=== PATIENT | female | born 1960 | race Caucasian/White ===

== ENCOUNTER → 2020-05-09 12:01 | Outpatient (CLI) | payer OTHER, SELFPAY ==
--- NOTE | 2020-05-09 | DI.MG.S_ITS ---
BILATERAL DIGITAL SCREENING MAMMOGRAM 3D/2D WITH CAD: 05/09/2020 CLINICAL: Routine screening. Family history of breast cancer. Comparison is made to exams dated: 01/07/2017 mammogram and 09/12/2015 mammogram - [facility]. There are scattered fibroglandular elements in both breasts. Current study was also evaluated with a Computer Aided Detection (CAD) system. No significant masses, calcifications, or other findings are seen in either breast. There has been no significant interval change. IMPRESSION: NEGATIVE There is no mammographic evidence of malignancy. A 1 year screening mammogram is recommended. This exam was interpreted at Station ID: [id number]. NOTE: For mammograms, a report in lay terms will be sent to the patient. Approximately 15% of breast malignancies will not be visualized mammographically. In the management of a palpable breast mass, a negative mammogram must not discourage biopsy of a clinically suspicious lesion. Electronically Signed By: Trinity juares/[email or web address]:05/09/2020 13:07:06 letter sent: Normal Exam ACR BI-RADS Category 1: Negative [id number]
== END ==
PROVIDERS: Family Provider Nurse Practitioner; PCP Nurse Practitioner Family; Referring Provider Nurse Practitioner Family; Visit Provider Nurse Practitioner Family
DX: Z12.31 Encounter for screening mammogram for malignant neoplasm of breast (principal); Z80.3 Family history of malignant neoplasm of breast; Z78.0 Asymptomatic menopausal state; E07.9 Disorder of thyroid, unspecified; S62.101A Fracture of unspecified carpal bone, right wrist, initial encounter for closed fracture; S62.102A Fracture of unspecified carpal bone, left wrist, initial encounter for closed fracture; Z87.891 Personal history of nicotine dependence
CPT/HCPCS: 77063; 77067; 77080

== ENCOUNTER → 2024-08-16 12:30 | Outpatient (CLI) | payer BC, SELFPAY ==
--- NOTE | 2024-08-16 12:34 | DI.ECHO.S_ITS ---
[facility] +---------+ [facility] : : [address] : : [place] : : [id number] : : Phone: [phone] Echocardiogram Report + + :Name: SREEDHAR LEE Study Date: 08/16/2024 Height: 67 in : :[facility] ReadingLocation: Weight: 195 lb : : Gender: Female BSA: 2.0 m2 : :: 1960 Age: 64 yrs BP: 141/101 mmHg: :Reason For Study: HYPERTENSION : :Ordering Physician: CYNDY PHILLIPS Performed By: Anna Goldstein : :Referring: CYNDY PHILLIPS : + + Interpretation Summary 1. Hyperdynamic LV contractility with EF > 80% and near obliteration of LV cavity at end systole resulting in a pseudo intracavitary gradient. No WMA. No LVH. Unable to comment on diastolic function. 2. Hyperdynamic RV contractility. 3. Normal chamber sizes. 4. No obvious valvular abnormalities. 5. No obvious intracardiac shunts. 6. No obvious intracardiac masses/thrombi. 7. No hemodynamically significant pericardial effusion. 8. Low right sided filling pressures. Conclusion: Hyperdynamic biventricular systolic function without significant valvular abnormalities. Procedure: A two-dimensional transthoracic echocardiogram with color flow and Doppler was performed. The study quality was technically adequate. There is no prior echocardiogram noted for this patient. The patient was in sinus tachycardia with heart rates between 89-103 bpm during the exam. Left Ventricle: The left ventricle is normal in size. Left ventricular wall thickness is borderline increased. An intracavitary gradient is suspected. The ejection fraction is estimated to be >80%. The left ventricle is hyperdynamic. Right Ventricle: The right ventricle is normal in size and function. Atria: The left atrial size is normal. Right atrial size is normal. There is no Doppler evidence for an interatrial shunt. Mitral Valve: The mitral valve leaflets appear to open well. There is no mitral regurgitation noted. Aortic Valve: The aortic valve is trileaflet. The aortic valve opens well. The peak aortic velocity is 2.0 m/sec. The aortic valve mean gradient is 8.8 mmHg. The calculated aortic valve area is 2.8 cm2. No aortic regurgitation is present. Tricuspid Valve: The tricuspid valve leaflets are thin and pliable. There is trace tricuspid regurgitation. Pulmonary artery pressures cannot be estimated because of the lack of a measurable TR jet velocity. Pulmonic Valve: The pulmonic valve is not well visualized. There is no pulmonic valvular regurgitation. Great Vessels: The aortic root is normal size. The dimensions of the ascending aorta are normal. The IVC is of normal diameter and collapses greater than 50% with a sniff. This suggests a low right atrial pressure of 3 mm Hg. Pericardium/ Pleura There is no pericardial effusion. There is no pleural effusion. MMode/2D Measurements & Calculations LVIDd: 4.5 cm LVOT diam: 2.1 cm LVIDs: 3.0 cm Ao root diam: 3.0 cm FS: 33.7 % asc Aorta Diam: 3.7 cm IVSd: 0.82 cm Ao Arch Diam (Prox Trans): 2.6 cm LVPWd: 1.1 cm LV logan. diameter/BSA (cm/m^2): 2.3 LV sys. diameter/BSA (cm/m^2): 1.5 LA A2 area: 19.3 cm2 RA long axis: 5.7 cm LA A4 area: 16.7 cm2 RA area: 13.1 cm2 LA length (vol): 5.5 cm RA vol: 25.4 ml LA vol: 49.5 ml RA : 12.7 ml/m2 LA vol index: 24.8 ml/m2 IVC diam: 1.3 cm RVD1 (basal): 3.0 cm RVD2 (mid): 2.5 cm TAPSE: 1.7 cm Doppler Measurements & Calculations Ao V2 max: 204.0 cm/sec LVOT Max Luis: 162.6 cm/sec Ao V2 mean: 140.9 cm/sec LV V1 max P.6 mmHg Ao max P.6 mmHg LV V1 VTI: 24.8 cm Ao mean P.8 mmHg NATHANIEL(I,D): 3.1 cm2 Ao V2 VTI: 28.5 cm NATHANIEL(V,D): 2.8 cm2 sev ratio: 0.87 NATHANIEL indexed to BSA (cm^2/m^2): 1.6 MV E max luis: 72.0 cm/sec PA V2 max: 136.9 cm/sec MV A max luis: 110.2 cm/sec PA V2 mean: 107.9 cm/sec MV E/A: 0.65 PA mean P.0 mmHg Med Peak E' Luis: 6.4 cm/sec PA pr(Accel): 30.2 mmHg E/E' med: 11.3 Lat Peak E' Luis: 12.2 cm/sec E/E' lat: 5.9 E/e' average: 8.6 MV dec time: 0.20 sec SV(LVOT): 88.5 ml Reading Physician:
== END ==
PROVIDERS: Family Provider Nurse Practitioner; PCP Family Medicine; Referring Provider Internal Medicine; Visit Provider Internal Medicine
DX: I10 Essential (primary) hypertension (principal)
CPT/HCPCS: 93306

== ENCOUNTER 2024-12-14 13:38 | Emergency (ER) | payer BC, SELFPAY ==
[2024-12-14] VITALS (48 sets, daily range): BP systolic 126–188; BP diastolic 82–137; PULSE 84–167; RESP 9–35; TEMP 36.6; O2SAT 94–99; BMI 31.3
--- NOTE | 2024-12-14 13:55 | EKG_ITS ---
[address] [address] Test Date: 2024-12-14 Pat Name: Swetha Alvarez Department: Room: Gender: Female Customer Service Manager: LILY : 1960 Requested By: Order Number: [id number] Reading MD: Gilson Phipps MD Measurements Intervals [place] Rate: 153 P: NC: QRS: 28 QRSD: 74 T: -1 QT: 290 QTc: 463 Interpretive Statements Critical Test Result: High HR Atrial fibrillation with rapid ventricular response Cannot rule out Anterior infarct , age undetermined NO PRIOR TRACING Electronically Signed On 12-15-2024 7:23:20 PDT by Gilson Phipps MD
--- NOTE | 2024-12-14 14:00 | DI.RAD.S_ITS ---
PROCEDURE: XR CHEST 1V INDICATIONS: Shortness of breath TECHNIQUE: One view of the chest was acquired. COMPARISON: None. FINDINGS: Surgical changes and devices: None. Lungs and pleura: Lungs are clear. No pleural effusions or pneumothorax. Mediastinum: Mediastinal contours appear normal. Heart size is enlarged. Bones and chest wall: No suspicious bony lesions. Overlying soft tissues appear unremarkable. IMPRESSION: Cardiomegaly. No acute pulmonary process. Dictated by: Dawit Pizarro M.D. on 12/14/2024 at 14:23 Approved by: Dawit Pizarro M.D. on 12/14/2024 at 14:24
--- NOTE | 2024-12-14 14:06 | ED_ITS ---
HPI - General Adult <Bassem Ireland MD - Last Filed: 12/15/24 09:58> General Chief complaint: Shortness of Breath/Dyspnea Stated complaint: Possible AFIB Time Seen by Provider: 12/14/24 14:05 Source: patient Mode of arrival: Ambulatory History of Present Illness HPI narrative: Significant PMHx include: HTN, hypothyroidism, alcohol use Swetha is a patient who presented to the emergency department with complaints of shortness of breath and feeling like her heart is racing. She first noticed the shortness of breath about two weeks ago, particularly with exertion. Last week, she started checking her blood pressure at home and noticed goofy numbers with her heart rate, ranging from 155 to 66. She saw her primary care physician today, who performed an EKG and referred her to the emergency department. Swetha has a history of high blood pressure and is currently taking Diltiazem and Losartan once daily. She had an echocardiogram in August and a heart monitor in September, which reportedly didn't show anything significant. She denies any history of heart attacks, blood clots, or previous diagnosis of fast irregular heartbeats. The patient reports drinking alcohol daily, currently consuming about half a bottle of watered-down wine per day. She last had alcohol yesterday. She also uses marijuana recreationally. Swetha denies smoking cigarettes and rarely consumes caffeine. Swetha denies feeling feverish, having a cough, or significant nasal congestion. She reports being a little snotty in the mornings but doesn't feel like she's coming down with a cold. She denies abdominal pain, nausea, vomiting, or swelling in the legs. She denies any chest pain or pain when urinating. The patient is on thyroid medication and reports that her TSH levels have been checked recently. Currently, Swetha experiences shortness of breath mostly with exertion. She describes her palpitations as coming and going. Related Data Home Medications Medication Instructions Recorded Confirmed cholecalciferol (vitamin D3) 50 2,000 iu PO 2XWK ##0 05/12/11 12/15/24 mcg (2,000 unit) capsule (Vitamin D3) cyanocobalamin (vitamin B-12) 1,000 mcg PO QDAY ##0 06/18/16 12/15/24 1,000 mcg tablet,extended release diltiazem HCl 120 mg 120 mg PO DAILY 12/14/24 12/14/24 capsule,extended release 24 hr losartan 100 mg tablet 100 mg PO DAILY 12/14/24 12/14/24 Previous Rx's Medication Instructions Recorded venlafaxine 75 mg capsule,extended 225 mg (3 x 75 mg) PO SEE 12/03/16 release 24 hr (Effexor XR) INSTRUCTIONS #270 caps levothyroxine 75 mcg tablet 0.075 mg PO QAM #15 tabs 04/07/17 (Synthroid) apixaban 5 mg tablet 5 mg PO BID #60 tabs 12/14/24 metoprolol tartrate 50 mg tablet 50 mg PO DAILY #10 tabs 12/14/24 Allergies Allergy/AdvReac Type Severity Reaction Status Date / Time SPIDER BITE Allergy Severe ANAPHYLAXIS Uncoded 12/14/24 13:57 SPIDER UNKNOWN Review of Systems <Bassem Ireland MD - Last Filed: 12/15/24 09:58> Review of Systems Narrative: All systems reviewed and unremarkable except as noted in the HPI Patient History <Bassem Ireland MD - Last Filed: 12/15/24 09:58> Social History Smoking Status: Smoker, status unknown Smoking Status: Smoker, status unknown Exam <Bassem Ireland MD - Last Filed: 12/15/24 09:58> Narrative Exam Narrative: VS as noted above Focused physical exam as follows: General: Well developed, well nourished, no acute distress HEENT: pink palpebral conjunctiva, anicteric sclera, ARIE, moist mucous membranes, no JVD, no cervical lymphadenopathy Lungs: no respiratory distress, clear to auscultation without wheezes or crackles; equal breath sounds Heart: tachycardic, irregular rhythm, no appreciable murmurs Abdomen: soft, nontender, no rebound or rigidity Musculoskeletal: no gross deformities with full ROM in all extremities, no pedal edema Skin: pink, warm; no rashes Neuro: AAOx3, GCS 15, nonfocal exam Psyche: no SI/HI, normal affect Initial Vital Signs Initial Vital Signs: Vital Signs Temperature 98 F 12/14/24 13:52 Pulse Rate 150 H 12/14/24 13:52 Respiratory Rate 18 12/14/24 13:52 Blood Pressure 183/103 H 12/14/24 13:52 Pulse Oximetry 98 12/14/24 13:52 Oxygen Delivery Method Room Air 12/14/24 13:52 <Christophe Woodruff MD - Last Filed: 12/15/24 17:53> Initial Vital Signs Initial Vital Signs: Vital Signs Temperature 98 F 12/14/24 13:52 Pulse Rate 150 H 12/14/24 13:52 Respiratory Rate 18 12/14/24 13:52 Blood Pressure 183/103 H 12/14/24 13:52 Pulse Oximetry 98 12/14/24 13:52 Oxygen Delivery Method Room Air 12/14/24 13:52 <Rolo Rios MD - Last Filed: 12/20/24 07:47> Initial Vital Signs Initial Vital Signs: Vital Signs Temperature 98 F 12/14/24 13:52 Pulse Rate 150 H 12/14/24 13:52 Respiratory Rate 18 12/14/24 13:52 Blood Pressure 183/103 H 12/14/24 13:52 Pulse Oximetry 98 12/14/24 13:52 Oxygen Delivery Method Room Air 12/14/24 13:52 Course <Bassem Ireland MD - Last Filed: 12/15/24 09:58> Course Course Narrative: Initial VS noted above. PMHx, PSHx, Medication list, social history reviewed as noted above. Differential diagnosis considered include (but not limited to) the following: ACS, cardiac dysrhythmia, electrolyte imbalance, CHF, PE, pneumonia, lung neoplasm, adverse effect or withdrawal of illicit drug/ETOH, symptomatic anemia, hypo/hyperthyroidism, anxiety Pt interviewed and examined. Bedside EKG showed narrow complex tachycardia. Cardizem 10mg IV ordered. No change in rhythm. Additional Cardizem 10mg IV ordered. HR still in the 140-150s range despite 2 doses of Cardizem. Cardizem drip started and maxxed out. 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 1630 - Discussed case with Dr. Fitzpatrick - he advised to continue Cardizem drip but give Metoprolol 5mg IV push and Metoprolol 50mg PO and see whether she converts or rate is controlled. If without improvement, will need to transfer where DANY cardioversion could be done. Metoprolol IV, PO and heparin bolus and drip started. 1800 - HR improved to the 80s but still in Afib. Transferred care to Dr. Woodruff @ 1850 with reassessment and disposition pending. Likely admit here for rate control, echo. Bassem Ireland MD 12/14/241849 Orders Ordered: Discontinued Medications Alprazolam (Alprazolam 0.25 Mg Tablet) 0.5 mg PO NOW ONE Stop: 12/15/24 13:36 Last Admin: 12/15/24 13:47 Dose: 0.5 mg Documented By: CORY Apixaban (Apixaban 5 Mg Tablet) 5 mg PO NOW ONE Stop: 12/15/24 05:15 Last Admin: 12/15/24 05:25 Dose: 5 mg Documented By: Diltiazem HCl (Diltiazem 25 Mg/5 Ml Sdv) 10 mg IV NOW ONE Stop: 12/14/24 14:18 Last Admin: 12/14/24 14:28 Dose: 10 mg Documented By: Diltiazem HCl (Diltiazem 25 Mg/5 Ml Sdv) 10 mg IV NOW ONE Stop: 12/14/24 14:45 Last Admin: 12/14/24 14:45 Dose: 10 mg Documented By: Diltiazem HCl (Diltiazem 25 Mg/5 Ml Sdv) 10 mg IV NOW ONE Stop: 12/15/24 06:27 Last Admin: 12/15/24 06:57 Dose: Not Given Documented By: Heparin Sodium (Porcine) (Heparin 5,000 Unit/Ml Vial) 5,000 unit IV NOW ONE Stop: 12/14/24 16:40 Last Admin: 12/14/24 16:49 Dose: 5,000 unit Documented By: Hydralazine HCl (Hydralazine 20 Mg/Ml Vial) 10 mg IV Q6HR PRN PRN Reason: Hypertension Last Admin: 12/15/24 12:38 Dose: 10 mg Documented By: ANJANA Diltiazem HCl 125 mg/ Sodium (Chloride) 125 mls @ 5 mls/hr IV TITRATE JOSE ELIAS; Protocol Last Titration: 12/15/24 03:51 Dose: Infused Documented By: Titration: 12/14/24 21:40 Dose: 0 mg/hr, 0 mls/hr Documented By: Titration: 12/14/24 16:40 Dose: 15 mg/hr, 15 mls/hr Documented By: Titration: 12/14/24 16:22 Dose: 12.5 mg/hr, 12.5 mls/hr Documented By: Titration: 12/14/24 16:15 Dose: 10 mg/hr, 10 mls/hr Documented By: Titration: 12/14/24 16:10 Dose: 7.5 mg/hr, 7.5 mls/hr Documented By: Admin: 12/14/24 16:02 Dose: 5 mg/hr, 5 mls/hr Documented By: ANJANA Magnesium Sulfate (Magnesium Sulfate) 2 gm in 50 mls @ 150 mls/hr IV NOW ONE Stop: 12/14/24 16:02 Last Infusion: 12/14/24 16:18 Dose: Infused Documented By: Co-signed By: ANJANA Admin: 12/14/24 15:52 Dose: 150 mls/hr Documented By: ANJANA Co-signed By: THOMAS Heparin Sodium/Dextrose (Heparin Drip) 25,000 unit in 500 mls @ 21.772 mls/hr IV CONT JOSE ELIAS; Protocol Last Titration: 12/14/24 21:40 Dose: Infused Documented By: Co-signed By: CODY Titration: 12/14/24 21:35 Dose: 0 units/kg/hr, 0 mls/hr Documented By: RONIT Co-signed By: CODY Admin: 12/14/24 16:57 Dose: 11.1 units/kg/hr, 20.139 mls/hr Documented By: Co-signed By: ANJANA Diltiazem HCl 125 mg/ Sodium (Chloride) 125 mls @ 5 mls/hr IV TITRATE JOSE ELIAS; Protocol Last Admin: 12/15/24 06:57 Dose: Not Given Documented By: Diltiazem HCl 125 mg/ Sodium (Chloride) 125 mls @ 5 mls/hr IV TITRATE JOSE ELIAS; Protocol Last Titration: 12/15/24 16:47 Dose: 10 mg/hr, 10 mls/hr Documented By: Titration: 12/15/24 14:25 Dose: 10 mg/hr, 10 mls/hr Documented By: Admin: 12/15/24 13:49 Dose: 5 mg/hr, 5 mls/hr Documented By: ANJANA Losartan Potassium (Losartan 50 Mg Tablet) 100 mg PO NOW ONE Stop: 12/15/24 12:04 Last Admin: 12/15/24 12:29 Dose: Not Given Documented By: ANJANA Metoprolol Succinate (Metoprolol Er 50 Mg Tablet) 50 mg PO NOW ONE Stop: 12/14/24 16:37 Last Admin: 12/14/24 16:49 Dose: 50 mg Documented By: Metoprolol Succinate (Metoprolol Er 50 Mg Tablet) 50 mg PO NOW ONE Stop: 12/15/24 05:15 Last Admin: 12/15/24 05:22 Dose: 50 mg Documented By: Metoprolol Tartrate (Metoprolol Tartrate 5 Mg/5 Ml Inj) 5 mg IV NOW ONE Stop: 12/14/24 16:37 Last Admin: 12/14/24 16:49 Dose: 5 mg Documented By: Metoprolol Tartrate (Metoprolol Tartrate 5 Mg/5 Ml Inj) 5 mg IV NOW ONE Stop: 12/15/24 06:26 Last Admin: 12/15/24 06:58 Dose: Not Given Documented By: Metoprolol Tartrate (Metoprolol Ir 25 Mg Tablet) 50 mg PO NOW ONE Stop: 12/15/24 06:51 Last Admin: 12/15/24 07:02 Dose: 50 mg Documented By: Vital Signs Vital signs: Vital Signs - 8 hr 12/15/24 10:00 12/15/24 10:00 12/15/24 10:19 Temperature Pulse Rate 108 H Respiratory Rate 18 Blood Pressure 161/92 H 146/108 H Pulse Oximetry 96 12/15/24 10:19 12/15/24 10:30 12/15/24 10:30 Temperature Pulse Rate 74 139 H Respiratory Rate 18 Blood Pressure 162/112 H Pulse Oximetry 99 12/15/24 10:45 12/15/24 10:45 12/15/24 11:00 Temperature Pulse Rate 133 H 127 H Respiratory Rate 16 16 Blood Pressure 154/103 H Pulse Oximetry 99 98 12/15/24 11:00 12/15/24 11:15 12/15/24 11:15 Temperature Pulse Rate 138 H Respiratory Rate 15 Blood Pressure 161/98 H 149/102 H Pulse Oximetry 98 12/15/24 11:30 12/15/24 11:31 12/15/24 11:31 Temperature Pulse Rate 133 H 132 H Respiratory Rate 21 Blood Pressure 191/100 H Pulse Oximetry 99 99 12/15/24 11:40 12/15/24 11:40 12/15/24 11:45 Temperature Pulse Rate 134 H 120 H Respiratory Rate 18 17 Blood Pressure 170/117 H Pulse Oximetry 98 98 12/15/24 12:00 12/15/24 12:00 12/15/24 12:16 Temperature Pulse Rate 109 H Respiratory Rate 15 Blood Pressure 156/91 H 144/110 H Pulse Oximetry 98 12/15/24 12:16 12/15/24 12:30 12/15/24 12:38 Temperature Pulse Rate 120 H 143 H 146 H Respiratory Rate 21 Blood Pressure 159/95 H Pulse Oximetry 98 98 12/15/24 12:38 12/15/24 12:38 12/15/24 12:45 Temperature Pulse Rate 141 H Respiratory Rate 14 Blood Pressure 159/95 H 165/118 H Pulse Oximetry 98 12/15/24 12:45 12/15/24 13:00 12/15/24 13:00 Temperature Pulse Rate 148 H 148 H Respiratory Rate 18 19 Blood Pressure 137/94 H Pulse Oximetry 100 98 12/15/24 13:17 12/15/24 13:17 12/15/24 13:30 Temperature Pulse Rate 151 H Respiratory Rate Blood Pressure 190/97 H 141/95 H Pulse Oximetry 100 12/15/24 13:30 12/15/24 13:45 12/15/24 13:45 Temperature Pulse Rate 151 H 152 H Respiratory Rate 19 15 Blood Pressure 146/114 H Pulse Oximetry 100 100 12/15/24 13:49 12/15/24 14:00 12/15/24 14:01 Temperature Pulse Rate 154 H 159 H Respiratory Rate 19 Blood Pressure 146/114 H 162/118 H Pulse Oximetry 99 12/15/24 14:01 12/15/24 14:16 12/15/24 14:16 Temperature Pulse Rate 156 H 155 H Respiratory Rate 18 Blood Pressure 151/110 H Pulse Oximetry 98 99 12/15/24 14:30 12/15/24 14:30 12/15/24 14:45 Temperature Pulse Rate 139 H 150 H Respiratory Rate 21 Blood Pressure 172/98 H Pulse Oximetry 99 99 12/15/24 14:45 12/15/24 15:00 12/15/24 15:00 Temperature Pulse Rate 138 H Respiratory Rate Blood Pressure 131/89 146/92 H Pulse Oximetry 99 12/15/24 15:05 12/15/24 15:05 12/15/24 15:10 Temperature Pulse Rate 150 H Respiratory Rate 16 Blood Pressure 125/88 131/79 Pulse Oximetry 100 12/15/24 15:10 12/15/24 15:14 12/15/24 15:15 Temperature Pulse Rate 144 H 138 H Respiratory Rate 21 Blood Pressure 141/98 H Pulse Oximetry 99 99 12/15/24 15:15 12/15/24 15:20 12/15/24 15:20 Temperature Pulse Rate 127 H 133 H Respiratory Rate 19 21 Blood Pressure 138/96 H Pulse Oximetry 99 100 12/15/24 15:30 12/15/24 15:30 12/15/24 15:35 Temperature Pulse Rate 131 H Respiratory Rate 20 Blood Pressure 139/89 125/91 H Pulse Oximetry 99 12/15/24 15:35 12/15/24 15:40 12/15/24 15:40 Temperature Pulse Rate 129 H 128 H Respiratory Rate 22 19 Blood Pressure 132/81 Pulse Oximetry 99 99 12/15/24 15:50 12/15/24 15:50 12/15/24 16:00 Temperature Pulse Rate 104 H Respiratory Rate Blood Pressure 152/84 H 160/88 H Pulse Oximetry 100 12/15/24 16:00 12/15/24 16:30 Temperature 98.2 F Pulse Rate 139 H 137 H Respiratory Rate 23 22 Blood Pressure Pulse Oximetry 99 99 <Christophe Woodruff MD - Last Filed: 12/15/24 17:53> Orders Ordered: Discontinued Medications Alprazolam (Alprazolam 0.25 Mg Tablet) 0.5 mg PO NOW ONE Stop: 12/15/24 13:36 Last Admin: 12/15/24 13:47 Dose: 0.5 mg Documented By: CORY Apixaban (Apixaban 5 Mg Tablet) 5 mg PO NOW ONE Stop: 12/15/24 05:15 Last Admin: 12/15/24 05:25 Dose: 5 mg Documented By: Diltiazem HCl (Diltiazem 25 Mg/5 Ml Sdv) 10 mg IV NOW ONE Stop: 12/14/24 14:18 Last Admin: 12/14/24 14:28 Dose: 10 mg Documented By: Diltiazem HCl (Diltiazem 25 Mg/5 Ml Sdv) 10 mg IV NOW ONE Stop: 12/14/24 14:45 Last Admin: 12/14/24 14:45 Dose: 10 mg Documented By: Diltiazem HCl (Diltiazem 25 Mg/5 Ml Sdv) 10 mg IV NOW ONE Stop: 12/15/24 06:27 Last Admin: 12/15/24 06:57 Dose: Not Given Documented By: Heparin Sodium (Porcine) (Heparin 5,000 Unit/Ml Vial) 5,000 unit IV NOW ONE Stop: 12/14/24 16:40 Last Admin: 12/14/24 16:49 Dose: 5,000 unit Documented By: Hydralazine HCl (Hydralazine 20 Mg/Ml Vial) 10 mg IV Q6HR PRN PRN Reason: Hypertension Last Admin: 12/15/24 12:38 Dose: 10 mg Documented By: ANJANA Diltiazem HCl 125 mg/ Sodium (Chloride) 125 mls @ 5 mls/hr IV TITRATE JOSE ELIAS; Protocol Last Titration: 12/15/24 03:51 Dose: Infused Documented By: Titration: 12/14/24 21:40 Dose: 0 mg/hr, 0 mls/hr Documented By: Titration: 12/14/24 16:40 Dose: 15 mg/hr, 15 mls/hr Documented By: Titration: 12/14/24 16:22 Dose: 12.5 mg/hr, 12.5 mls/hr Documented By: Titration: 12/14/24 16:15 Dose: 10 mg/hr, 10 mls/hr Documented By: Titration: 12/14/24 16:10 Dose: 7.5 mg/hr, 7.5 mls/hr Documented By: Admin: 12/14/24 16:02 Dose: 5 mg/hr, 5 mls/hr Documented By: ANJANA Magnesium Sulfate (Magnesium Sulfate) 2 gm in 50 mls @ 150 mls/hr IV NOW ONE Stop: 12/14/24 16:02 Last Infusion: 12/14/24 16:18 Dose: Infused Documented By: Co-signed By: ANJANA Admin: 12/14/24 15:52 Dose: 150 mls/hr Documented By: ANJANA Co-signed By: THOMAS Heparin Sodium/Dextrose (Heparin Drip) 25,000 unit in 500 mls @ 21.772 mls/hr IV CONT JOSE ELIAS; Protocol Last Titration: 12/14/24 21:40 Dose: Infused Documented By: Co-signed By: CODY Titration: 12/14/24 21:35 Dose: 0 units/kg/hr, 0 mls/hr Documented By: RONIT Co-signed By: CODY Admin: 12/14/24 16:57 Dose: 11.1 units/kg/hr, 20.139 mls/hr Documented By: Co-signed By: ANJANA Diltiazem HCl 125 mg/ Sodium (Chloride) 125 mls @ 5 mls/hr IV TITRATE JOSE ELIAS; Protocol Last Admin: 12/15/24 06:57 Dose: Not Given Documented By: Diltiazem HCl 125 mg/ Sodium (Chloride) 125 mls @ 5 mls/hr IV TITRATE JOSE ELIAS; Protocol Last Titration: 12/15/24 16:47 Dose: 10 mg/hr, 10 mls/hr Documented By: Titration: 12/15/24 14:25 Dose: 10 mg/hr, 10 mls/hr Documented By: Admin: 12/15/24 13:49 Dose: 5 mg/hr, 5 mls/hr Documented By: ANJANA Losartan Potassium (Losartan 50 Mg Tablet) 100 mg PO NOW ONE Stop: 12/15/24 12:04 Last Admin: 12/15/24 12:29 Dose: Not Given Documented By: ANJANA Metoprolol Succinate (Metoprolol Er 50 Mg Tablet) 50 mg PO NOW ONE Stop: 12/14/24 16:37 Last Admin: 12/14/24 16:49 Dose: 50 mg Documented By: Metoprolol Succinate (Metoprolol Er 50 Mg Tablet) 50 mg PO NOW ONE Stop: 12/15/24 05:15 Last Admin: 12/15/24 05:22 Dose: 50 mg Documented By: Metoprolol Tartrate (Metoprolol Tartrate 5 Mg/5 Ml Inj) 5 mg IV NOW ONE Stop: 12/14/24 16:37 Last Admin: 12/14/24 16:49 Dose: 5 mg Documented By: Metoprolol Tartrate (Metoprolol Tartrate 5 Mg/5 Ml Inj) 5 mg IV NOW ONE Stop: 12/15/24 06:26 Last Admin: 12/15/24 06:58 Dose: Not Given Documented By: Metoprolol Tartrate (Metoprolol Ir 25 Mg Tablet) 50 mg PO NOW ONE Stop: 12/15/24 06:51 Last Admin: 12/15/24 07:02 Dose: 50 mg Documented By: Vital Signs Vital signs: Vital Signs - 8 hr 12/15/24 10:00 12/15/24 10:00 12/15/24 10:19 Temperature Pulse Rate 108 H Respiratory Rate 18 Blood Pressure 161/92 H 146/108 H Pulse Oximetry 96 12/15/24 10:19 12/15/24 10:30 12/15/24 10:30 Temperature Pulse Rate 74 139 H Respiratory Rate 18 Blood Pressure 162/112 H Pulse Oximetry 99 12/15/24 10:45 12/15/24 10:45 12/15/24 11:00 Temperature Pulse Rate 133 H 127 H Respiratory Rate 16 16 Blood Pressure 154/103 H Pulse Oximetry 99 98 12/15/24 11:00 12/15/24 11:15 12/15/24 11:15 Temperature Pulse Rate 138 H Respiratory Rate 15 Blood Pressure 161/98 H 149/102 H Pulse Oximetry 98 12/15/24 11:30 12/15/24 11:31 12/15/24 11:31 Temperature Pulse Rate 133 H 132 H Respiratory Rate 21 Blood Pressure 191/100 H Pulse Oximetry 99 99 12/15/24 11:40 12/15/24 11:40 12/15/24 11:45 Temperature Pulse Rate 134 H 120 H Respiratory Rate 18 17 Blood Pressure 170/117 H Pulse Oximetry 98 98 12/15/24 12:00 12/15/24 12:00 12/15/24 12:16 Temperature Pulse Rate 109 H Respiratory Rate 15 Blood Pressure 156/91 H 144/110 H Pulse Oximetry 98 12/15/24 12:16 12/15/24 12:30 12/15/24 12:38 Temperature Pulse Rate 120 H 143 H 146 H Respiratory Rate 21 Blood Pressure 159/95 H Pulse Oximetry 98 98 12/15/24 12:38 12/15/24 12:38 12/15/24 12:45 Temperature Pulse Rate 141 H Respiratory Rate 14 Blood Pressure 159/95 H 165/118 H Pulse Oximetry 98 12/15/24 12:45 12/15/24 13:00 12/15/24 13:00 Temperature Pulse Rate 148 H 148 H Respiratory Rate 18 19 Blood Pressure 137/94 H Pulse Oximetry 100 98 12/15/24 13:17 12/15/24 13:17 12/15/24 13:30 Temperature Pulse Rate 151 H Respiratory Rate Blood Pressure 190/97 H 141/95 H Pulse Oximetry 100 12/15/24 13:30 12/15/24 13:45 12/15/24 13:45 Temperature Pulse Rate 151 H 152 H Respiratory Rate 19 15 Blood Pressure 146/114 H Pulse Oximetry 100 100 12/15/24 13:49 12/15/24 14:00 12/15/24 14:01 Temperature Pulse Rate 154 H 159 H Respiratory Rate 19 Blood Pressure 146/114 H 162/118 H Pulse Oximetry 99 12/15/24 14:01 12/15/24 14:16 12/15/24 14:16 Temperature Pulse Rate 156 H 155 H Respiratory Rate 18 Blood Pressure 151/110 H Pulse Oximetry 98 99 12/15/24 14:30 12/15/24 14:30 12/15/24 14:45 Temperature Pulse Rate 139 H 150 H Respiratory Rate 21 Blood Pressure 172/98 H Pulse Oximetry 99 99 12/15/24 14:45 12/15/24 15:00 12/15/24 15:00 Temperature Pulse Rate 138 H Respiratory Rate Blood Pressure 131/89 146/92 H Pulse Oximetry 99 12/15/24 15:05 12/15/24 15:05 12/15/24 15:10 Temperature Pulse Rate 150 H Respiratory Rate 16 Blood Pressure 125/88 131/79 Pulse Oximetry 100 12/15/24 15:10 12/15/24 15:14 12/15/24 15:15 Temperature Pulse Rate 144 H 138 H Respiratory Rate 21 Blood Pressure 141/98 H Pulse Oximetry 99 99 12/15/24 15:15 12/15/24 15:20 12/15/24 15:20 Temperature Pulse Rate 127 H 133 H Respiratory Rate 19 21 Blood Pressure 138/96 H Pulse Oximetry 99 100 12/15/24 15:30 12/15/24 15:30 12/15/24 15:35 Temperature Pulse Rate 131 H Respiratory Rate 20 Blood Pressure 139/89 125/91 H Pulse Oximetry 99 12/15/24 15:35 12/15/24 15:40 12/15/24 15:40 Temperature Pulse Rate 129 H 128 H Respiratory Rate 22 19 Blood Pressure 132/81 Pulse Oximetry 99 99 12/15/24 15:50 12/15/24 15:50 12/15/24 16:00 Temperature Pulse Rate 104 H Respiratory Rate Blood Pressure 152/84 H 160/88 H Pulse Oximetry 100 12/15/24 16:00 12/15/24 16:30 Temperature 98.2 F Pulse Rate 139 H 137 H Respiratory Rate 23 22 Blood Pressure Pulse Oximetry 99 99 <Rolo Rios MD - Last Filed: 12/20/24 07:47> Orders Ordered: Discontinued Medications Alprazolam (Alprazolam 0.25 Mg Tablet) 0.5 mg PO NOW ONE Stop: 12/15/24 13:36 Last Admin: 12/15/24 13:47 Dose: 0.5 mg Documented By: CORY Apixaban (Apixaban 5 Mg Tablet) 5 mg PO NOW ONE Stop: 12/15/24 05:15 Last Admin: 12/15/24 05:25 Dose: 5 mg Documented By: Diltiazem HCl (Diltiazem 25 Mg/5 Ml Sdv) 10 mg IV NOW ONE Stop: 12/14/24 14:18 Last Admin: 12/14/24 14:28 Dose: 10 mg Documented By: Diltiazem HCl (Diltiazem 25 Mg/5 Ml Sdv) 10 mg IV NOW ONE Stop: 12/14/24 14:45 Last Admin: 12/14/24 14:45 Dose: 10 mg Documented By: Diltiazem HCl (Diltiazem 25 Mg/5 Ml Sdv) 10 mg IV NOW ONE Stop: 12/15/24 06:27 Last Admin: 12/15/24 06:57 Dose: Not Given Documented By: Heparin Sodium (Porcine) (Heparin 5,000 Unit/Ml Vial) 5,000 unit IV NOW ONE Stop: 12/14/24 16:40 Last Admin: 12/14/24 16:49 Dose: 5,000 unit Documented By: Hydralazine HCl (Hydralazine 20 Mg/Ml Vial) 10 mg IV Q6HR PRN PRN Reason: Hypertension Last Admin: 12/15/24 12:38 Dose: 10 mg Documented By: ANJANA Diltiazem HCl 125 mg/ Sodium (Chloride) 125 mls @ 5 mls/hr IV TITRATE JOSE ELIAS; Protocol Last Titration: 12/15/24 03:51 Dose: Infused Documented By: Titration: 12/14/24 21:40 Dose: 0 mg/hr, 0 mls/hr Documented By: Titration: 12/14/24 16:40 Dose: 15 mg/hr, 15 mls/hr Documented By: Titration: 12/14/24 16:22 Dose: 12.5 mg/hr, 12.5 mls/hr Documented By: Titration: 12/14/24 16:15 Dose: 10 mg/hr, 10 mls/hr Documented By: Titration: 12/14/24 16:10 Dose: 7.5 mg/hr, 7.5 mls/hr Documented By: Admin: 12/14/24 16:02 Dose: 5 mg/hr, 5 mls/hr Documented By: ANJANA Magnesium Sulfate (Magnesium Sulfate) 2 gm in 50 mls @ 150 mls/hr IV NOW ONE Stop: 12/14/24 16:02 Last Infusion: 12/14/24 16:18 Dose: Infused Documented By: Co-signed By: ANJANA Admin: 12/14/24 15:52 Dose: 150 mls/hr Documented By: ANJANA Co-signed By: THOMAS Heparin Sodium/Dextrose (Heparin Drip) 25,000 unit in 500 mls @ 21.772 mls/hr IV CONT JOSE ELIAS; Protocol Last Titration: 12/14/24 21:40 Dose: Infused Documented By: AB Co-signed By: CODY Titration: 12/14/24 21:35 Dose: 0 units/kg/hr, 0 mls/hr Documented By: RONIT Co-signed By: CODY Admin: 12/14/24 16:57 Dose: 11.1 units/kg/hr, 20.139 mls/hr Documented By: Co-signed By: ANJANA Diltiazem HCl 125 mg/ Sodium (Chloride) 125 mls @ 5 mls/hr IV TITRATE JOSE ELIAS; Protocol Last Admin: 12/15/24 06:57 Dose: Not Given Documented By: AB Diltiazem HCl 125 mg/ Sodium (Chloride) 125 mls @ 5 mls/hr IV TITRATE JOSE ELIAS; Protocol Last Titration: 12/15/24 16:47 Dose: 10 mg/hr, 10 mls/hr Documented By: Titration: 12/15/24 14:25 Dose: 10 mg/hr, 10 mls/hr Documented By: Admin: 12/15/24 13:49 Dose: 5 mg/hr, 5 mls/hr Documented By: ANJANA Losartan Potassium (Losartan 50 Mg Tablet) 100 mg PO NOW ONE Stop: 12/15/24 12:04 Last Admin: 12/15/24 12:29 Dose: Not Given Documented By: ANJANA Metoprolol Succinate (Metoprolol Er 50 Mg Tablet) 50 mg PO NOW ONE Stop: 12/14/24 16:37 Last Admin: 12/14/24 16:49 Dose: 50 mg Documented By: Metoprolol Succinate (Metoprolol Er 50 Mg Tablet) 50 mg PO NOW ONE Stop: 12/15/24 05:15 Last Admin: 12/15/24 05:22 Dose: 50 mg Documented By: Metoprolol Tartrate (Metoprolol Tartrate 5 Mg/5 Ml Inj) 5 mg IV NOW ONE Stop: 12/14/24 16:37 Last Admin: 12/14/24 16:49 Dose: 5 mg Documented By: Metoprolol Tartrate (Metoprolol Tartrate 5 Mg/5 Ml Inj) 5 mg IV NOW ONE Stop: 12/15/24 06:26 Last Admin: 12/15/24 06:58 Dose: Not Given Documented By: Metoprolol Tartrate (Metoprolol Ir 25 Mg Tablet) 50 mg PO NOW ONE Stop: 12/15/24 06:51 Last Admin: 12/15/24 07:02 Dose: 50 mg Documented By: Vital Signs Vital signs: Vital Signs - 8 hr 12/15/24 10:00 12/15/24 10:00 12/15/24 10:19 Temperature Pulse Rate 108 H Respiratory Rate 18 Blood Pressure 161/92 H 146/108 H Pulse Oximetry 96 12/15/24 10:19 12/15/24 10:30 12/15/24 10:30 Temperature Pulse Rate 74 139 H Respiratory Rate 18 Blood Pressure 162/112 H Pulse Oximetry 99 12/15/24 10:45 12/15/24 10:45 12/15/24 11:00 Temperature Pulse Rate 133 H 127 H Respiratory Rate 16 16 Blood Pressure 154/103 H Pulse Oximetry 99 98 12/15/24 11:00 12/15/24 11:15 12/15/24 11:15 Temperature Pulse Rate 138 H Respiratory Rate 15 Blood Pressure 161/98 H 149/102 H Pulse Oximetry 98 12/15/24 11:30 12/15/24 11:31 12/15/24 11:31 Temperature Pulse Rate 133 H 132 H Respiratory Rate 21 Blood Pressure 191/100 H Pulse Oximetry 99 99 12/15/24 11:40 12/15/24 11:40 12/15/24 11:45 Temperature Pulse Rate 134 H 120 H Respiratory Rate 18 17 Blood Pressure 170/117 H Pulse Oximetry 98 98 12/15/24 12:00 12/15/24 12:00 12/15/24 12:16 Temperature Pulse Rate 109 H Respiratory Rate 15 Blood Pressure 156/91 H 144/110 H Pulse Oximetry 98 12/15/24 12:16 12/15/24 12:30 12/15/24 12:38 Temperature Pulse Rate 120 H 143 H 146 H Respiratory Rate 21 Blood Pressure 159/95 H Pulse Oximetry 98 98 12/15/24 12:38 12/15/24 12:38 12/15/24 12:45 Temperature Pulse Rate 141 H Respiratory Rate 14 Blood Pressure 159/95 H 165/118 H Pulse Oximetry 98 12/15/24 12:45 12/15/24 13:00 12/15/24 13:00 Temperature Pulse Rate 148 H 148 H Respiratory Rate 18 19 Blood Pressure 137/94 H Pulse Oximetry 100 98 12/15/24 13:17 12/15/24 13:17 12/15/24 13:30 Temperature Pulse Rate 151 H Respiratory Rate Blood Pressure 190/97 H 141/95 H Pulse Oximetry 100 12/15/24 13:30 12/15/24 13:45 12/15/24 13:45 Temperature Pulse Rate 151 H 152 H Respiratory Rate 19 15 Blood Pressure 146/114 H Pulse Oximetry 100 100 12/15/24 13:49 12/15/24 14:00 12/15/24 14:01 Temperature Pulse Rate 154 H 159 H Respiratory Rate 19 Blood Pressure 146/114 H 162/118 H Pulse Oximetry 99 12/15/24 14:01 12/15/24 14:16 12/15/24 14:16 Temperature Pulse Rate 156 H 155 H Respiratory Rate 18 Blood Pressure 151/110 H Pulse Oximetry 98 99 12/15/24 14:30 12/15/24 14:30 12/15/24 14:45 Temperature Pulse Rate 139 H 150 H Respiratory Rate 21 Blood Pressure 172/98 H Pulse Oximetry 99 99 12/15/24 14:45 12/15/24 15:00 12/15/24 15:00 Temperature Pulse Rate 138 H Respiratory Rate Blood Pressure 131/89 146/92 H Pulse Oximetry 99 12/15/24 15:05 12/15/24 15:05 12/15/24 15:10 Temperature Pulse Rate 150 H Respiratory Rate 16 Blood Pressure 125/88 131/79 Pulse Oximetry 100 12/15/24 15:10 12/15/24 15:14 12/15/24 15:15 Temperature Pulse Rate 144 H 138 H Respiratory Rate 21 Blood Pressure 141/98 H Pulse Oximetry 99 99 12/15/24 15:15 12/15/24 15:20 12/15/24 15:20 Temperature Pulse Rate 127 H 133 H Respiratory Rate 19 21 Blood Pressure 138/96 H Pulse Oximetry 99 100 12/15/24 15:30 12/15/24 15:30 12/15/24 15:35 Temperature Pulse Rate 131 H Respiratory Rate 20 Blood Pressure 139/89 125/91 H Pulse Oximetry 99 12/15/24 15:35 12/15/24 15:40 12/15/24 15:40 Temperature Pulse Rate 129 H 128 H Respiratory Rate 22 19 Blood Pressure 132/81 Pulse Oximetry 99 99 12/15/24 15:50 12/15/24 15:50 12/15/24 16:00 Temperature Pulse Rate 104 H Respiratory Rate Blood Pressure 152/84 H 160/88 H Pulse Oximetry 100 12/15/24 16:00 12/15/24 16:30 Temperature 98.2 F Pulse Rate 139 H 137 H Respiratory Rate 23 22 Blood Pressure Pulse Oximetry 99 99 Medical Decision Making <Bassem Ireland MD - Last Filed: 12/15/24 09:58> Lab Data 12/14/24 14:00 12/15/24 08:30 Labs: Lab Results 12/14/24 12/14/24 12/15/24 Range/Units 14:00 17:35 08:30 WBC 10.3 (4.5-11.0) X10^3/uL RBC 4.53 (4.0-5.2) X10^6/uL Hgb 14.1 (12.0-16.0) g/dL Hct 41.4 (36-46) % MCV 91.4 (80-100) fL MCH 31.2 (26-34) PG MCHC 34.1 (30-36) % RDW 13.4 (11.6-14.8) % Plt Count 330 (150-400) X10^3/uL Neut % (Auto) 72.1 (50-75) % Lymph % (Auto) 16.6 L (25-40) % [place] % (Auto) 9.8 (3-14) % Eos % (Auto) 0.5 L (2-4) % Baso % (Auto) 1.0 (0-2) % Neut # (Auto) 7500 H (7157-2114) /uL Lymph # (Auto) 1700 (1340-2573) /uL [place] # (Auto) 1000 H (0-900) /uL Eos # (Auto) 100 (0-450) /uL Baso # (Auto) 100 (0-100) /uL PT 11.6 (9.4-12.5) SECONDS INR 1.0 (0.9-1.3) APTT 34 (25.1-36.5) SECONDS Sodium 128 L 132 L (137-145) mmol/L Potassium 4.1 4.4 (3.4-5.1) mmol/L Chloride 96 L 99 (98-107) mmol/L Carbon Dioxide 21 L 21 L (22-32) mmol/L BUN 8 10 (7-17) mg/dL Creatinine 0.49 L 0.48 L (0.52-1.04) mg/dL Estimated GFR > 60 > 60 (>60) mL/min BUN/Creatinine Ratio 16.3 20.8 (6-22) Glucose 108 H 115 H (70-99) mg/dL Lactate 1.1 (0.7-2.1) mmol/L Calcium 9.5 9.4 (8.4-10.2) mg/dL Magnesium 1.7 (1.6-2.3) mg/dL Total Bilirubin 0.8 0.8 (0.2-1.3) mg/dL AST 57 H 46 H (14-36) IU/L ALT 40 H 37 H (<35) IU/L Alkaline Phosphatase 67 56 (38-126) U/L Total Creatine Kinase 67 (30-135) U/L Troponin I < 0.012 < 0.012 (0.01-0.034) ng/mL NT-Pro-B Natriuret Pep 1060 H (<125) pg/mL Total Protein 8.0 7.9 (6.3-8.2) g/dL Albumin 4.7 4.6 (3.5-5.0) g/dL Globulin 3.3 3.3 (1.7-4.1) g/dL Albumin/Globulin Ratio 1.4 1.4 (1.0-2.8) TSH 9.83 H (0.47-4.68) uIU/mL U Opiates 300ng/mL cut Negative (Negative) Ur Oxycodone Screen Negative (Negative) Urine Methadone Screen Negative (Negative) Ur Barbiturates Screen Negative (Negative) U Tricyclic Antidepress Negative (Negative) Ur Phencyclidine Scrn Negative (Negative) Ur Amphetamines Screen Negative (Negative) U Methamphetamines Scrn Negative (Negative) Ur MDMA Scrn (Ecstasy) Negative (Negative) U Benzodiazepines Scrn Negative (Negative) Urine Cocaine Screen Negative (Negative) U Marijuana (THC) Screen Positive H (Negative) Urine pH Normal (Normal) Urine Specific [place] Normal (Normal) Ethyl Alcohol < 10 ( - 10) mg/dL Ur Creatinine Normal (Normal) ECG Data Attestation: I personally reviewed and interpreted this ECG as follows: (1400 - narrow complex tach @ 153; nonspecific STTW changes; QTc 463) <Christophe Woodruff MD - Last Filed: 12/15/24 17:53> Lab Data Lab results reviewed: Yes I reviewed the patient's lab results. Lab results narrative: White blood cell count 26282, hemoglobin 14.1, platelets adequate. Glucose 108. Normal renal function. Serum CO2 21. Sodium 128 low. Potassium 4.1 normal. LFTs show mild transaminitis, normal T bili and alkaline phosphatase noted. TSH 9.8 elevated. Lactate 1.1 normal. Alcohol level negative. Troponin negative/unmeasurable. BNP 1060 elevated. UDS positive for THC otherwise negative. Labs: Lab Results 12/14/24 12/14/24 12/15/24 Range/Units 14:00 17:35 08:30 WBC 10.3 (4.5-11.0) X10^3/uL RBC 4.53 (4.0-5.2) X10^6/uL Hgb 14.1 (12.0-16.0) g/dL Hct 41.4 (36-46) % MCV 91.4 (80-100) fL MCH 31.2 (26-34) PG MCHC 34.1 (30-36) % RDW 13.4 (11.6-14.8) % Plt Count 330 (150-400) X10^3/uL Neut % (Auto) 72.1 (50-75) % Lymph % (Auto) 16.6 L (25-40) % [place] % (Auto) 9.8 (3-14) % Eos % (Auto) 0.5 L (2-4) % Baso % (Auto) 1.0 (0-2) % Neut # (Auto) 7500 H (6676-8709) /uL Lymph # (Auto) 1700 (2766-8308) /uL [place] # (Auto) 1000 H (0-900) /uL Eos # (Auto) 100 (0-450) /uL Baso # (Auto) 100 (0-100) /uL PT 11.6 (9.4-12.5) SECONDS INR 1.0 (0.9-1.3) APTT 34 (25.1-36.5) SECONDS Sodium 128 L 132 L (137-145) mmol/L Potassium 4.1 4.4 (3.4-5.1) mmol/L Chloride 96 L 99 (98-107) mmol/L Carbon Dioxide 21 L 21 L (22-32) mmol/L BUN 8 10 (7-17) mg/dL Creatinine 0.49 L 0.48 L (0.52-1.04) mg/dL Estimated GFR > 60 > 60 (>60) mL/min BUN/Creatinine Ratio 16.3 20.8 (6-22) Glucose 108 H 115 H (70-99) mg/dL Lactate 1.1 (0.7-2.1) mmol/L Calcium 9.5 9.4 (8.4-10.2) mg/dL Magnesium 1.7 (1.6-2.3) mg/dL Total Bilirubin 0.8 0.8 (0.2-1.3) mg/dL AST 57 H 46 H (14-36) IU/L ALT 40 H 37 H (<35) IU/L Alkaline Phosphatase 67 56 (38-126) U/L Total Creatine Kinase 67 (30-135) U/L Troponin I < 0.012 < 0.012 (0.01-0.034) ng/mL NT-Pro-B Natriuret Pep 1060 H (<125) pg/mL Total Protein 8.0 7.9 (6.3-8.2) g/dL Albumin 4.7 4.6 (3.5-5.0) g/dL Globulin 3.3 3.3 (1.7-4.1) g/dL Albumin/Globulin Ratio 1.4 1.4 (1.0-2.8) TSH 9.83 H (0.47-4.68) uIU/mL U Opiates 300ng/mL cut Negative (Negative) Ur Oxycodone Screen Negative (Negative) Urine Methadone Screen Negative (Negative) Ur Barbiturates Screen Negative (Negative) U Tricyclic Antidepress Negative (Negative) Ur Phencyclidine Scrn Negative (Negative) Ur Amphetamines Screen Negative (Negative) U Methamphetamines Scrn Negative (Negative) Ur MDMA Scrn (Ecstasy) Negative (Negative) U Benzodiazepines Scrn Negative (Negative) Urine Cocaine Screen Negative (Negative) U Marijuana (THC) Screen Positive H (Negative) Urine pH Normal (Normal) Urine Specific [place] Normal (Normal) Ethyl Alcohol < 10 ( - 10) mg/dL Ur Creatinine Normal (Normal) Imaging Data Chest x-ray: Radiologist's Impression: [address] [address] XRay Report Signed Patient: Swetha Alvarez MR#: [id number] : 1960 Acct:[id number] Age/Sex: 64 / F Date of Service: 12/14/24 Loc: ED Accession Number: [id number] Procedure: XR chest 1V Ordering Provider: Bassem Ireland MD PROCEDURE: XR CHEST 1V INDICATIONS: Shortness of breath TECHNIQUE: One view of the chest was acquired. COMPARISON: None. FINDINGS: Surgical changes and devices: None. Lungs and pleura: Lungs are clear. No pleural effusions or pneumothorax. Mediastinum: Mediastinal contours appear normal. Heart size is enlarged. Bones and chest wall: No suspicious bony lesions. Overlying soft tissues appear unremarkable. IMPRESSION: Cardiomegaly. No acute pulmonary process. Dictated by: Dawit Pizarro M.D. on 12/14/2024 at 14:23 Approved by: Dawit Pizarro M.D. on 12/14/2024 at 14:24 CTA chest: Radiologist's Impression: Close Chest CTA (Signed) Servando Villatoro - 12/14/24 Chest X-Ray (Signed) Dawit Pizarro - 12/14/24 Launch?[place] [address] CT Scan Report Signed Patient: Swetha Alvarez MR#: [id number] : 1960 Acct:[id number] Age/Sex: 64 / F Date of Service: 12/14/24 Loc: ED Accession Number: [id number] Procedure: CT angio chest PE protocol Ordering Provider: Bassem Ireland MD PROCEDURE: CT ANGIO CHEST PE PROTOCOL INDICATIONS: dyspnea, atrial fibrillation TECHNIQUE: After the administration of intravenous contrast, 2 mm thick sections acquired from the pulmonary apices to the posterior costophrenic angles. 3-dimensional maximum intensity projection (MIP) coronal and sagittal reformats were then acquired through the thorax. For radiation dose reduction, the following was used: automated exposure control, adjustment of mA and/or kV according to patient size. COMPARISON: None. FINDINGS: Image quality: Diagnostic. Pulmonary arteries: Pulmonary arteries are normal in size, and demonstrate no intraluminal filling defects to suggest central pulmonary embolism. Lower Neck: No enlarged lymph nodes. Thyroid: No thyroid nodules which require sonographic follow up, per consensus guidelines. Axillae: No enlarged lymph nodes. Chest Wall: Unremarkable. Bones: Unremarkable. Lungs and Pleura: No pneumothorax or pleural effusions. Subsolid pulmonary nodule, right lower lobe, image 199 of series 5 measuring 1.1 x 0.7 cm. Heart: Heart size is normal. Left atrium is enlarged. No pericardial effusion. Severe coronary artery calcifications with suggestion of a severe stenosis from noncalcified plaque in the LAD on image 78 of series 4. There is some left main coronary artery plaque as well. Thoracic Vessels: No aortic aneurysm. Mediastinum and Reyna: No enlarged lymph nodes. Esophagus: No wall thickening. No hiatal hernia. Upper Abdomen: Question cirrhosis. Reflux of contrast throughout the hepatic veins may indicate the presence of a degree of right heart failure. IMPRESSION: 1. No pulmonary embolus. 2. No acute pulmonary process. 3. Severe coronary artery calcifications. 4. Suggestion of a possible severe noncalcified LAD stenosis. There is also left main coronary artery calcification. 5. Subsolid pulmonary nodule, 1.1 cm in maximum diameter, right lower lobe. 6. Question right heart failure. 7. Question cirrhotic change. Comment: Recommend correlation for presence or absence of acute cardiovascular symptomatology. Recommend six-month follow-up CT for the subsolid pulmonary nodule in the right lung. Dictated by: Servando Villatoro M.D. on 12/14/2024 at 15:35 Approved by: Servando Villatoro M.D. on 12/14/2024 at 15:41 MDM Narrative Medical decision making narrative: 12/14/24, Ranjan Pak. Signout from Dr Ireland. 64-year-old female with history of atrial fibrillation, not on chronic anticoagulation, has been taking oral Cardizem and Losartan since July 2024, had shortness of breath, noted to have increased heart rate 160-150 range, AFib RVR in clinic, referred here, had echocardiogram August 2024 unclear results, had health and physical education teacher as an outpatient unclear results. On arrival here also found to be in atrial fibrillation with rapid ventricular response, systolic blood pressure 150s, tolerated IV diltiazem boluses of 10 mg x 2, IV diltiazem infusion titrated to a maximum dose. Case was discussed with on-call cardiology Dr. Fitzpatrick who suggested addition of IV metoprolol and oral metoprolol. IV 5 mg metoprolol given, 50 mg oral metoprolol given. Cardiology had suggested that if she could not be rate controlled she might need transfer for DANY and emergent cardioversion. If rate controlled consider further admission here. Assumed care. Chest x-ray cardiomegaly, no acute changes. See radiology report. EKG from 1355h, atrial fibrillation with rapid ventricular response, rate 153 beats per minute, no obvious ST segment elevation or depression changes. QRS 74, QTC 463. EKG from 2001h, atrial fibrillation with rate 92 beats per minute, QRS 76, QTC 460. No obvious ST segment elevation or depression changes. CTA chest. No PE, no acute pulmonary process, calcified LAD noted, also calcification along the left main coronary artery. Pulmonary nodule right lower lobe 1.1 cm incidentally noted. Possible right heart failure. Possible cirrhotic changes. See radiology report. 2129, case discussed with cardiology Dr. Fitzpatrick, who is familiar with patient from prior, heart rate has been in 80-90s, blood pressure stable. He suggest weaning off the diltiazem drip. Can cancel/stopped the heparin. If stable would add oral metoprolol for discharge, with cardiology follow up as an outpatient, and would add Eliquis 5 mg twice daily anticoagulation. We will attempt diltiazem infusion wean. 2239, heart rate 90-110 range, just weaned off of diltiazem drip, further observe for rate control. Records review. Echocardiogram done 08/16/2024 at [facility]. Conclusion: ?Hyperdynamic biventricular systolic function without significant valvular abnormalities. ? LVEF greater than 80%. Interpretation by Dr Phillips. No ride back home to [place], await possible 0530 morning [place], observe in ED 0530, early this morning starting to have AFib RVR once again, 120-140 range, given her morning oral diltiazem dose, also took her thyroid replacement hormone and losartan, as well as morning dose of 50 mg metoprolol. Also gave dose of oral Eliquis. 0630, still having AFib with RVR, rate 140s, systolic blood pressure 160. IV diltiazem 10 mg bolus, restart infusion. We will re-contact cardiology Dr Fitzpatrick. Dr. Fitzpatrick suggest not using the IV diltiazem, canceled, but suggests giving additional 50 mg metoprolol IR, and if successful with the next couple of hours and consider discharge on metoprolol 100 XL twice daily 0700, signed out to Dr Rios <Rolo Rios MD - Last Filed: 12/20/24 07:47> Lab Data Labs: Lab Results 12/14/24 12/14/24 12/15/24 Range/Units 14:00 17:35 08:30 WBC 10.3 (4.5-11.0) X10^3/uL RBC 4.53 (4.0-5.2) X10^6/uL Hgb 14.1 (12.0-16.0) g/dL Hct 41.4 (36-46) % MCV 91.4 (80-100) fL MCH 31.2 (26-34) PG MCHC 34.1 (30-36) % RDW 13.4 (11.6-14.8) % Plt Count 330 (150-400) X10^3/uL Neut % (Auto) 72.1 (50-75) % Lymph % (Auto) 16.6 L (25-40) % [place] % (Auto) 9.8 (3-14) % Eos % (Auto) 0.5 L (2-4) % Baso % (Auto) 1.0 (0-2) % Neut # (Auto) 7500 H (9177-0703) /uL Lymph # (Auto) 1700 (2826-1260) /uL [place] # (Auto) 1000 H (0-900) /uL Eos # (Auto) 100 (0-450) /uL Baso # (Auto) 100 (0-100) /uL PT 11.6 (9.4-12.5) SECONDS INR 1.0 (0.9-1.3) APTT 34 (25.1-36.5) SECONDS Sodium 128 L 132 L (137-145) mmol/L Potassium 4.1 4.4 (3.4-5.1) mmol/L Chloride 96 L 99 (98-107) mmol/L Carbon Dioxide 21 L 21 L (22-32) mmol/L BUN 8 10 (7-17) mg/dL Creatinine 0.49 L 0.48 L (0.52-1.04) mg/dL Estimated GFR > 60 > 60 (>60) mL/min BUN/Creatinine Ratio 16.3 20.8 (6-22) Glucose 108 H 115 H (70-99) mg/dL Lactate 1.1 (0.7-2.1) mmol/L Calcium 9.5 9.4 (8.4-10.2) mg/dL Magnesium 1.7 (1.6-2.3) mg/dL Total Bilirubin 0.8 0.8 (0.2-1.3) mg/dL AST 57 H 46 H (14-36) IU/L ALT 40 H 37 H (<35) IU/L Alkaline Phosphatase 67 56 (38-126) U/L Total Creatine Kinase 67 (30-135) U/L Troponin I < 0.012 < 0.012 (0.01-0.034) ng/mL NT-Pro-B Natriuret Pep 1060 H (<125) pg/mL Total Protein 8.0 7.9 (6.3-8.2) g/dL Albumin 4.7 4.6 (3.5-5.0) g/dL Globulin 3.3 3.3 (1.7-4.1) g/dL Albumin/Globulin Ratio 1.4 1.4 (1.0-2.8) TSH 9.83 H (0.47-4.68) uIU/mL U Opiates 300ng/mL cut Negative (Negative) Ur Oxycodone Screen Negative (Negative) Urine Methadone Screen Negative (Negative) Ur Barbiturates Screen Negative (Negative) U Tricyclic Antidepress Negative (Negative) Ur Phencyclidine Scrn Negative (Negative) Ur Amphetamines Screen Negative (Negative) U Methamphetamines Scrn Negative (Negative) Ur MDMA Scrn (Ecstasy) Negative (Negative) U Benzodiazepines Scrn Negative (Negative) Urine Cocaine Screen Negative (Negative) U Marijuana (THC) Screen Positive H (Negative) Urine pH Normal (Normal) Urine Specific [place] Normal (Normal) Ethyl Alcohol < 10 ( - 10) mg/dL Ur Creatinine Normal (Normal) MDM Narrative Medical decision making narrative: 12/14/24, 1830Ranjan. Signout from Dr Ireland. 64-year-old female with history of atrial fibrillation, not on chronic anticoagulation, has been taking oral Cardizem and Losartan since July 2024, had shortness of breath, noted to have increased heart rate 160-150 range, AFib RVR in clinic, referred here, had echocardiogram August 2024 unclear results, had health and physical education teacher as an outpatient unclear results. On arrival here also found to be in atrial fibrillation with rapid ventricular response, systolic blood pressure 150s, tolerated IV diltiazem boluses of 10 mg x 2, IV diltiazem infusion titrated to a maximum dose. Case was discussed with on-call cardiology Dr. Fitzpatrick who suggested addition of IV metoprolol and oral metoprolol. IV 5 mg metoprolol given, 50 mg oral metoprolol given. Cardiology had suggested that if she could not be rate controlled she might need transfer for DANY and emergent cardioversion. If rate controlled consider further admission here. Assumed care. Chest x-ray cardiomegaly, no acute changes. See radiology report. EKG from 1355h, atrial fibrillation with rapid ventricular response, rate 153 beats per minute, no obvious ST segment elevation or depression changes. QRS 74, QTC 463. EKG from 2001h, atrial fibrillation with rate 92 beats per minute, QRS 76, QTC 460. No obvious ST segment elevation or depression changes. CTA chest. No PE, no acute pulmonary process, calcified LAD noted, also calcification along the left main coronary artery. Pulmonary nodule right lower lobe 1.1 cm incidentally noted. Possible right heart failure. Possible cirrhotic changes. See radiology report. 2129, case discussed with cardiology Dr. Fitzpatrick, who is familiar with patient from prior, heart rate has been in 80-90s, blood pressure stable. He suggest weaning off the diltiazem drip. Can cancel/stopped the heparin. If stable would add oral metoprolol for discharge, with cardiology follow up as an outpatient, and would add Eliquis 5 mg twice daily anticoagulation. We will attempt diltiazem infusion wean. 2239, heart rate 90-110 range, just weaned off of diltiazem drip, further observe for rate control. Records review. Echocardiogram done 08/16/2024 at [facility]. Conclusion: ?Hyperdynamic biventricular systolic function without significant valvular abnormalities. ? LVEF greater than 80%. Interpretation by Dr Phillips. No ride back home to [place], await possible 0530 morning [place], observe in ED 0530, early this morning starting to have AFib RVR once again, 120-140 range, given her morning oral diltiazem dose, also took her thyroid replacement hormone and losartan, as well as morning dose of 50 mg metoprolol. Also gave dose of oral Eliquis. 0630, still having AFib with RVR, rate 140s, systolic blood pressure 160. IV diltiazem 10 mg bolus, restart infusion. We will re-contact cardiology Dr Fitzpatrick. Dr. Fitzpatrick suggest not using the IV diltiazem, canceled, but suggests giving additional 50 mg metoprolol IR, and if successful with the next couple of hours and consider discharge on metoprolol 100 XL twice daily 0700, signed out to Dr Rios 7:[address] Rios: Sign-out from Dr. Woodruff, patient has been here overnight. Patient has been given Cardizem Cardizem drip metoprolol apixaban oral metoprolol as well. Heart rate still 140. Patient in no distress. Cardiology has been involved. Plan was to discharge to home. 7:20 a.m.. Reviewed with patient, she states she essentially was diagnosed with AFib yesterday. She saw her primary care. She has been short of breath for the past [address] Phillips, cardiology for the purposes of high blood pressure at [facility]. But not for AFib. She was on metoprolol a could not tolerate due to side effects and was given Cardizem which was working well. Denies any chest pain. 8:28 a.m.. I spoke with Dr. Fitzpatrick, who will contact Dr. Phillips and see if patient can be cardioverted outpatient today or tomorrow. At this time continue current treatment plan. Give the metoprolol more time for rate control. 8:57 a.m.. Repeat CMP sodium has improved. Sodium 132 potassium 4.4 GFR greater than 60 BUN 10 creatinine 0.48, patient remains in AFib rate averaging 120 1:00 p.m.. I spoke with Dr. Fitzpatrick, communications electrician supervisor, they are unable to get patient to [facility] today, recommends patient go on Cardizem drip and transferred to another facility. 1:35 p.m.. I spoke with Dr. Rosado, hospitalist at [facility], who will accept patient. 1:40 p.m.. Updated patient and she does understand will need to be transferred to [facility]. Critical Care Time <Rolo Rios MD - Last Filed: 12/20/24 07:47> Critical Care Time Attestation: Critical Care Time 35minutes: Critical care time is separate from other billable procedures. This critical care time includes consultation with family and other consulting doctors, review of records, and interpretation of data from labs, EKGs, imaging, etc. Discharge Plan Departure Patient Disposition: [facility] Clinical Impression: Atrial fibrillation with rapid ventricular response Prescriptions: New metoprolol tartrate 50 mg tablet 50 mg PO DAILY Qty: 10 0RF apixaban 5 mg tablet 5 mg PO BID Qty: 60 0RF No Action cholecalciferol (vitamin D3) [Vitamin D3] 2,000 UNIT capsule 2,000 iu PO 2XWK Qty: 0 cyanocobalamin (vitamin B-12) 1,000 MCG tablet extended release 1,000 mcg PO QDAY Qty: 0 venlafaxine [Effexor XR] 75 MG capsule,extended release 24hr 225 mg PO SEE INSTRUCTIONS Qty: 270 1RF levothyroxine [Synthroid] 75 MCG tablet 0.075 mg PO QAM Qty: 15 0RF diltiazem HCl 120 mg capsule,extended release 24hr 120 mg PO DAILY losartan 100 mg tablet 100 mg PO DAILY Referrals: Stefani Cooper MD [Primary Care Provider] -
[2024-12-14 14:16] LABS: Prothrombin Time 11.6 SECONDS (9.4-12.5)
[2024-12-14 14:17] LABS: Add Manual Diff / Slide Review NO; Basophils Absolute Auto 100 /uL (0-100); Eosinophils Absolute Auto 100 /uL (0-450); Eosinophils Percent Auto 0.5 % (2-4); Hematocrit 41.4 % (36-46); Hemoglobin 14.1 g/dL (12.0-16.0); Lymphocytes Absolute Auto 1700 /uL (1100-4500); Lymphocytes Percent Auto 16.6 % (25-40); Mean Corpuscular HGB Conc 34.1 % (30-36); Mean Corpuscular Hemoglobin 31.2 PG (26-34); Mean Corpuscular Volume 91.4 fL (80-100); Monocytes Absolute Auto 1000 /uL (0-900); Monocytes Percent Auto 9.8 % (3-14); Neutrophils Absolute Auto 7500 /uL (1500-7000); Neutrophils Percent Auto 72.1 % (50-75); Platelet Count 330 X10^3/uL (150-400); Red Blood Cell Count 4.53 X10^6/uL (4.0-5.2); Red Cell Distribution Width 13.4 % (11.6-14.8); White Blood Cell Count 10.3 X10^3/uL (4.5-11.0)
--- NOTE | 2024-12-14 14:17 | DI.CT.S_ITS ---
PROCEDURE: CT ANGIO CHEST PE PROTOCOL INDICATIONS: dyspnea, atrial fibrillation TECHNIQUE: After the administration of intravenous contrast, 2 mm thick sections acquired from the pulmonary apices to the posterior costophrenic angles. 3-dimensional maximum intensity projection (MIP) coronal and sagittal reformats were then acquired through the thorax. For radiation dose reduction, the following was used: automated exposure control, adjustment of mA and/or kV according to patient size. COMPARISON: None. FINDINGS: Image quality: Diagnostic. Pulmonary arteries: Pulmonary arteries are normal in size, and demonstrate no intraluminal filling defects to suggest central pulmonary embolism. Lower Neck: No enlarged lymph nodes. Thyroid: No thyroid nodules which require sonographic follow up, per consensus guidelines. Axillae: No enlarged lymph nodes. Chest Wall: Unremarkable. Bones: Unremarkable. Lungs and Pleura: No pneumothorax or pleural effusions. Subsolid pulmonary nodule, right lower lobe, image 199 of series 5 measuring 1.1 x 0.7 cm. Heart: Heart size is normal. Left atrium is enlarged. No pericardial effusion. Severe coronary artery calcifications with suggestion of a severe stenosis from noncalcified plaque in the LAD on image 78 of series 4. There is some left main coronary artery plaque as well. Thoracic Vessels: No aortic aneurysm. Mediastinum and Reyna: No enlarged lymph nodes. Esophagus: No wall thickening. No hiatal hernia. Upper Abdomen: Question cirrhosis. Reflux of contrast throughout the hepatic veins may indicate the presence of a degree of right heart failure. IMPRESSION: 1. No pulmonary embolus. 2. No acute pulmonary process. 3. Severe coronary artery calcifications. 4. Suggestion of a possible severe noncalcified LAD stenosis. There is also left main coronary artery calcification. 5. Subsolid pulmonary nodule, 1.1 cm in maximum diameter, right lower lobe. 6. Question right heart failure. 7. Question cirrhotic change. Comment: Recommend correlation for presence or absence of acute cardiovascular symptomatology. Recommend six-month follow-up CT for the subsolid pulmonary nodule in the right lung. Dictated by: Servando Villatoro M.D. on 12/14/2024 at 15:35 Approved by: Servando Villatoro M.D. on 12/14/2024 at 15:41
[2024-12-14 14:23] LABS: Lactate (Lactic Acid) 1.1 mmol/L (0.7-2.1)
[2024-12-14 14:24] LABS: Alanine Aminotransferase 40 IU/L (<35); Albumin 4.7 g/dL (3.5-5.0); Albumin Globulin Ratio 1.4 (1.0-2.8); Alkaline Phosphatase 67 U/L (38-126); Aspartate Aminotransferase 57 IU/L (14-36); BUN Creatinine Ratio 16.3 (6-22); Bilirubin Total 0.8 mg/dL (0.2-1.3); Blood Urea Nitrogen 8 mg/dL (7-17); Calcium 9.5 mg/dL (8.4-10.2); Carbon Dioxide 21 mmol/L (22-32); Chloride 96 mmol/L (98-107); Estimated Glomerular Filt Rate > 60 mL/min (>60); Globulin 3.3 g/dL (1.7-4.1); Glucose 108 mg/dL (70-99); HEMOLYSIS < 15 (0-50); Potassium 4.1 mmol/L (3.4-5.1); Sodium 128 mmol/L (137-145)
[2024-12-14] MEDS: dilTIAZem 25 MG/5 ML SDV 10 MG IV ×2 (14:28→14:45)
--- NOTE | 2024-12-14 14:35 | PC.NURSE ---
HR remains >154. MD aware, additional dose of cardizem administered.
[2024-12-14 14:36] LABS: NT-proBNP (BNP-Adult 18+) 1060 pg/mL (<125); Troponin I < 0.012 ng/mL (0.01-0.034)
[2024-12-14 14:44] LABS: Ethanol (ETOH) < 10 mg/dL; Magnesium 1.7 mg/dL (1.6-2.3)
--- NOTE | 2024-12-14 15:15 | PC.NURSE ---
HR remains 150. Dr Ireland notified.
[2024-12-14 15:16] LABS: Thyroid Stimulating Hormone 9.83 uIU/mL (0.47-4.68)
[2024-12-14] MEDS: MAGNESIUM SULFATE 2 GM/50 ML PIGGYBACK IV (15:52)
[2024-12-14] MEDS: dilTIAZem 125 MG in SODIUM CHLORIDE 0.9% 100 ML IV (16:02)
[2024-12-14] MEDS: METOPROLOL TARTRATE 5 MG/5 ML INJ IV (16:49)
[2024-12-14] MEDS: METOPROLOL ER 50 MG TABLET PO (16:49)
[2024-12-14] MEDS: HEPARIN 5,000 UNIT/ML VIAL 5000 UNIT IV (16:49)
[2024-12-14] MEDS: HEPARIN DRIP 25,000 UNIT/500 ML IV.SOLN 20.139 UNIT IV (16:57)
[2024-12-14 17:00] LABS: PTT Partial Thromboplastin Tim 34 SECONDS (25.1-36.5)
[2024-12-14 18:03] LABS: UR Morphine/Opiate cutoff 300 Negative (Negative); Ur Creatinine Normal (Normal); Ur Specific Gravity Normal (Normal); Urine Amphetamines Negative (Negative); Urine Barbiturates Negative (Negative); Urine Benzodiazepines Negative (Negative); Urine Cocaine Negative (Negative); Urine MDMA Negative (Negative); Urine Methadone Negative (Negative); Urine Methamphetamines Negative (Negative); Urine Oxycodone Negative (Negative); Urine Phencyclidine Negative (Negative); Urine Tetrahydrocannabinol Positive (Negative); Urine Tricyclic Antidepressant Negative (Negative); Urine pH Normal (Normal)
--- NOTE | 2024-12-14 19:50 | EKG_ITS ---
[place] [id number] [place] [id number] Test Date: 2024-12-14 Pat Name: Swetha Alvarez Department: [facility] Room: Gender: Female [employer] Specialist: : [id number] Requested By: Order Number: [id number] Reading MD: Gilson Phipps MD Measurements Intervals [place] Rate: 92 P: MT: QRS: 5 QRSD: 76 T: 7 QT: 372 QTc: 460 Interpretive Statements Atrial fibrillation Cannot rule out Anterior infarct , age undetermined Electronically Signed On 12-15-2024 7:23:51 PDT by Gilson Phipps MD
[2024-12-15] VITALS (79 sets, daily range): BP systolic 125–191; BP diastolic 79–122; PULSE 74–159; RESP 9–27; TEMP 36.8; O2SAT 94–100
--- NOTE | 2024-12-15 03:46 | PC.NURSE ---
Pt wanting to sleep, so she asked for her door and curtain to be closed. She will use call light if she is in need of anything at this time. Will continue to monitor pt until she leaves for ferr back home this morning.
--- NOTE | 2024-12-15 05:13 | PC.NURSE ---
Pt took her own doing of oral diltiazem 120 mg, and levothyroxine 75mcg at this time.
[2024-12-15] MEDS: METOPROLOL ER 50 MG TABLET PO (05:22)
[2024-12-15] MEDS: APIXABAN 5 MG TABLET PO (05:25)
--- NOTE | 2024-12-15 06:30 | PC.NURSE ---
Pt continues to be in Afib with HR greater than 100 bpm. Pt BP has increased since stoping the Cardizem drip and heparin. So per provider pt given oral medications at earlier than normal morning dosing. Will closely monitor to ensure that pt is feeling well, and notable improvements in her BP and Heart rate.
[2024-12-15] MEDS: METOPROLOL IR 25 MG TABLET 50 MG PO (07:02)
[2024-12-15 08:55] LABS: Alanine Aminotransferase 37 IU/L (<35); Albumin 4.6 g/dL (3.5-5.0); Albumin Globulin Ratio 1.4 (1.0-2.8); Alkaline Phosphatase 56 U/L (38-126); Aspartate Aminotransferase 46 IU/L (14-36); BUN Creatinine Ratio 20.8 (6-22); Bilirubin Total 0.8 mg/dL (0.2-1.3); Blood Urea Nitrogen 10 mg/dL (7-17); Calcium 9.4 mg/dL (8.4-10.2); Carbon Dioxide 21 mmol/L (22-32); Chloride 99 mmol/L (98-107); Creatine Kinase 67 U/L (30-135); Estimated Glomerular Filt Rate > 60 mL/min (>60); Globulin 3.3 g/dL (1.7-4.1); Glucose 115 mg/dL (70-99); HEMOLYSIS < 15 (0-50); Potassium 4.4 mmol/L (3.4-5.1); Sodium 132 mmol/L (137-145); Total Protein 7.9 g/dL (6.3-8.2)
[2024-12-15 09:07] LABS: Troponin I < 0.012 ng/mL (0.01-0.034)
--- NOTE | 2024-12-15 09:20 | PC.NURSE ---
Patient presented to PCP on [place] to complain of SOB with exertion and increased fatigue over the course of a week. Denies chest pain or epigastric pain. Reports daily alcohol use. Denies tremors, audio or visual hallucinations. CIWA 0.
--- NOTE | 2024-12-15 11:23 | PC.NURSE ---
Pt took 3x75 mg (225mg total) of home Venlafaxine. MD Gabriel khoury.
[2024-12-15] MEDS: hydrALAZINE 20 MG/ML VIAL 10 MG IV (12:38)
[2024-12-15] MEDS: ALPRAZolam 0.25 MG TABLET 0.5 MG PO (13:47)
[2024-12-15] MEDS: dilTIAZem 125 MG in SODIUM CHLORIDE 0.9% 100 ML IV (13:49)
--- NOTE | 2024-12-15 15:34 | PC.NURSE ---
Consulted w/ MD Rios about pt bp 130 sys and HR 98-130's. Stated to hold on upping dose and for now continue at current dilt dose.
--- NOTE | 2024-12-15 16:48 | PC.NURSE ---
Reassess; no change
--- NOTE | 2024-12-15 16:49 | PC.NURSE ---
Reassess; no change. Pt on dilt drip.
== END 2024-12-15 17:12 | disposition short-term general hospital (02) ==
PROVIDERS: Emergency Medicine; Emergency Provider Emergency Medicine; Family Provider Nurse Practitioner; PCP Family Medicine
DX: I48.20 Chronic atrial fibrillation, unspecified (principal)
CPT/HCPCS: 36415; 71045; 71275; 80053; 80305; 80320; 82550; 83605; 83735; 83880; 84443; 84484; 85025; 85610; 85730; 93005; 93010; 96365; 96366; 96367; 96368; 96375; 96376; 99284; 99291; J0360; J1644; J3475; Q9967